=== PATIENT | female | born 1950 | race Caucasian/White ===

== ENCOUNTER → 2017-07-02 | Outpatient (CLI) | payer OTHER ==
[~2017-07-02] MED LIST: IBUP-1050 PO
--- NOTE | 2017-07-02 10:54 | DIAGNOSTIC IMAGING REPORT ---
CHEST 2 VIEWS ROUTINE CLINICAL HISTORY: R05 [id number] dyspnea COMPARISON STUDY: 09/22/2013 FINDINGS: Parenchymal infiltrate left midlung and left basilar region. Lungs otherwise are clear. No evidence for cardiac enlargement. Diaphragms are smooth. IMPRESSION: Parenchymal infiltrate combined with atelectatic change left mid and lower lung region. This study should be repeated a later date following appropriate treatment to confirm complete resolution The above report was generated using voice recognition software. It may contain grammatical, syntax or spelling errors. Electronically signed by: Live Graham M.D. 07/02/2017 10:53 AM Dictated Date/Time: 07/02/2017 10:51 AM
[2017-07-02 11:24] LABS: BASO % 0.3 %; BASO ABS # 0.03 K/uL (0-0.2); EOS ABS # 0.21 K/uL (0-0.5); HEMATOCRIT 42.3 % (37-47); HEMOGLOBIN 13.9 g/dL (12.0-16.0); IG# 0.04 K/uL (0.00-0.02); LYMPH ABS # 2.88 K/uL (1.2-3.4); MEAN CELL VOLUME 87.9 fL (80-100); MEAN CORPUSCULAR HEMOGLOBIN 28.9 pg (25-34); MEAN CORPUSCULAR HGB CONC 32.9 g/dl (32-36); MEAN PLATELET VOLUME 10.6 fL (7.4-10.4); MONO % 7.2 %; MONO ABS # 0.74 K/uL (0.11-0.59); NEUT % 62.1 %; NEUT ABS # 6.38 K/uL (1.4-6.5); PLATELET COUNT 241 K/uL (130-400); RED CELL DISTRIBUTION WIDTH CV 13.2 % (11.5-14.5); RED CELL DISTRIBUTION WIDTH SD 42.3 fL (36.4-46.3); WHITE BLOOD COUNT 10.28 K/uL (4.8-10.8)
[2017-07-02 12:44] LABS: ALBUMIN 3.5 gm/dl (3.4-5.0); AST/SGOT 10 U/L (15-37); BLOOD UREA NITROGEN 11 mg/dl (7-18); CARBON DIOXIDE 27 mmol/L (21-32); CREATININE 0.67 mg/dl (0.60-1.20); GLUCOSE 83 mg/dl (70-99); POTASSIUM 4.1 mmol/L (3.5-5.1); SODIUM 137 mmol/L (136-145)
[2017-07-02 12:47] LABS: ALKALINE PHOSPHATASE 75 U/L (45-117); ALT/SGPT 19 U/L (12-78); TOTAL PROTEIN 7.4 gm/dl (6.4-8.2)
== END | disposition home or self-care (01) ==
LOC: C.RAD 10:09
PROVIDERS: ATTEND Nurse Practitioner
DX: R91.8 Other nonspecific abnormal finding of lung field (principal); R05 Cough

== ENCOUNTER 2021-02-09 18:17 | Observation (INO) ==
[2021-02-09] MEDS ORDERED: XYLOCAINE 1%/SOD BICARB 20 ML VIAL INFIL ONE (19:22)
--- NOTE | 2021-02-09 20:26 | CT Scan Report ---
CT head/brain wo con CLINICAL HISTORY: 70 years-old Female with Pt c/o head injury. Acute head injury status post fall TECHNIQUE: Multiple axial CT images of the head were obtained without contrast. A dose lowering tech nique was utilized adhering to the principles of ALARA. COMPARISON: CT cervical spine and maxillofacial studies of same day FINDINGS: No acute intracranial hemorrhage, midline shift, intracranial mass, hydrocephalus, territorial ischem ia or abnormal extra-axial collection. Age-related involutional changes. The calvarium is intact. Mastoid air cells are clear. Mucoperiosteal thickening of the maxillary sin uses. Acute fractures of the left maxilla, left orbit and zygomatic arch. Large periorbital and left cheek contusion with hematoma. Subcutaneous and deep tissue emphysema. IMPRESSION: 1. No acute intracranial abnormality or calvarial fracture. 2. Acute facial bone fractures with large left periorbital left cheek hematoma. ACT 112: Negative or not required by law. The above report was generated using voice recognition software. It may contain grammatical, syntax o r spelling errors. Electronically signed by: Wong Lindsey M.D. 02/09/2021 8:25 PM
[2021-02-09] MEDS ORDERED: CLINDAMYCIN HCL 150 MG CAP PO ONE (20:31)
--- NOTE | 2021-02-09 20:36 | CT Scan Report ---
CT cervical spine wo con CT DOSE: 1050.75 mGy.cm CLINICAL HISTORY: 70 years-old Female with Pt c/o fall. Acute head and neck injury status post fall COMPARISON: CT head and maxillofacial studies of same day TECHNIQUE: Multiple axial CT images of the cervical spine were obtained without contrast. A dose low ering technique was utilized adhering to the principles of ALARA. FINDINGS: Moderate multilevel spondylitic spurring with mild facet arthrosis and intervertebral disc space narrowing. No acute fracture or subluxation. No endplate erosions. The mastoid air cells and mi ddle ear cavities are clear. The lung apices are clear. No prevertebral edema. Multinodular thyroid. IMPRESSION: No acute cervical spine fracture or subluxation. ACT 112: Negative or not required by law. The above report was generated using voice recognition software. It may contain grammatical, syntax o r spelling errors. Electronically signed by: Wong Lindsey M.D. 02/09/2021 8:35 PM
--- NOTE | 2021-02-09 20:45 | CT Scan Report ---
CT facial bones wo con CLINICAL HISTORY: 70 years-old Female presenting with Pt c/o fall, hit head. Acute head and facial in jury status post fall COMPARISON STUDY: CT head of same day, CT maxillofacial 09/22/2013 TECHNIQUE: High-resolution CT scan of the facial bones is performed. Images are reviewed in the axia l, sagittal, and coronal planes. IV contrast was not administered for this examination. A dose lower ing technique was utilized adhering to the principles of ALARA. FINDINGS: Left periorbital hematoma measures up to 7.0 x 0.9 cm. Left cheek hematoma with contusion. Acute comm inuted and angulated fracture of the left lateral orbital and maxillary steven. Acute comminuted and m ildly displaced fractures involve the anterior medial steven of the left maxillary sinus. Acute commin uted fracture the left orbital floor demonstrates 3 mm depression. Hemorrhage layers along the inferi or rectus muscle. No extraocular muscular entrapment. Acute mildly angulated and depressed fracture o f the left lamina papyracea. There are suggested chronic nasal bone fractures. Acute nondisplaced fra cture involves the lateral left pterygoid plate on image 235 series 6. Acute nondisplaced fractures o f the left zygomatic arch. The mandible is intact. No acute cervical spine fracture identified. Subcu taneous emphysema deep tissue air involves the left face. Hemorrhage within the left maxillary sinus with chronic mucoperiosteal thickening of the maxillary sinuses. Partial opacification of the ethmoid air cells. Mastoid air cells are clear. IMPRESSION: 1. Acute comminuted fractures of the lateral, medial and inferior orbital steven with large left perio rbital and left cheek contusion with hematoma. There is small amount of hemorrhage layering along the left inferior rectus muscle. No extraocular muscle entrapment. 2. Acute comminuted slightly displaced and angulated fractures of the medial, anterior and lateral wa lls of the left maxillary sinus. Layering hemorrhage within the maxillary sinus antrum with subcutane ous and deep tissue emphysema of the left face. 3. Acute fractures of the left zygomatic arch without significant displacement. 4. Subtle acute nondisplaced fracture involves the lateral left pterygoid plate. ACT 112: Negative or not required by law. The above report was generated using voice recognition software. It may contain grammatical, syntax o r spelling errors. Electronically signed by: Wong Lindsey M.D. 02/09/2021 8:44 PM
[2021-02-09 22:35] LABS: Basophils # (auto) 0.01 K/uL (0-0.2); Basophils % (auto) 0.1 %; Eosinophils # (auto) 0.03 K/uL (0-0.5); Eosinophils % (auto) 0.3 %; Hematocrit (blood only) 43.2 % (37-47); Hemoglobin 14.1 g/dL (12.0-16.0); Immature Granulocytes # (auto) 0.03 K/uL (0.00-0.02); Immature Granulocytes % (auto) 0.3 %; Lymphocytes # (auto) 2.24 K/uL (1.2-3.4); Lymphocytes % (auto) 23.2 %; Mean Corpuscular Hemoglobin 28.9 pg (25-34); Mean Corpuscular Hgb Conc 32.6 g/dL (32-36); Mean Corpuscular Volume 88.5 fL (80-100); Mean Platelet Volume 11.5 fL (7.4-10.4); Monocytes # (auto) 0.71 K/uL (0.11-0.59); Monocytes % (auto) 7.3 %; Neutrophils # (auto) 6.64 K/uL (1.4-6.5); Neutrophils % (auto) 68.8 %; Platelet Count 187 K/uL (130-400); RDW Coefficient of Variation 14.2 % (11.5-14.5); RDW Standard Deviation 46.4 fL (36.4-46.3); Red Blood Count 4.88 M/uL (4.2-5.4); White Blood Count 9.66 K/uL (4.8-10.8)
--- NOTE | 2021-02-09 22:37 | History & Physical Report ---
Date of Service February 09, 2021 Assessment & Plan (1) Orbital fracture: Plan: 70yo female with no significant past medical or surgical history presenting with acute fractures of left maxilla, left orbit and left zygomatic arch with large periorbital and cheek contusion with hematoma. Patient had suture repair in ER. No entrapment. She is AA&O with nonfocal neurological exam. Not on any anti- platelet agents or blood thinners -Admit to medical floor -Neuro checks with GCS q 4 hours -Ice to affected area -Clindamycin 600mg IV q 8 due to sinus fracture -Tylenol and Oxy-IR PRN pain -Zofran as needed for nausea -OMFS assessment appreciated (2) Zygomatic fracture: (3) Maxillary fracture: History of Present Illness Chief Complaint: facial fractures s/p mechanical fall Primary Care Provider: Eugenio Canales MD [place] is a 70yo female with no significant past medical or surgical history presenting with facial fractures following a ground-level mechanical fall. Patient was walking outside and states that she tripped on a part of raised sidewalk. She did not put her hands out to break her fall and struck her left face against concrete. She was able to get up immediately and had her sister bring her to the ER. She denies chest pain/palpitations/dizziness/lightheadedness preceding or following the fall. She denies loss of consciousness. Presently states that her left face is numb. Denies SMITH. Pain 4/10. ER course: suture repair of two small infraorbital lacerations Clindamycin 300mg Allergies Allergy/AdvReac Type Severity Reaction Status Date / Time Penicillins Allergy Unknown UNKNOWN Unverified 02/09/21 19:44 Home Medications Medication Instructions Recorded Confirmed Type No Known Home Medications 02/09/21 02/09/21 History Past Med/Surg History Medical History (Updated 02/09/21 @ 22:56 by Baylee Prince DO) Closed avulsion fracture of left calcaneus Headache Herpes zoster Maxillary fracture Orbital fracture Sinusitis Vaginal bleeding Zygomatic fracture Surgical History (Updated 02/09/21 @ 22:47 by Baylee Prince DO) History of eye surgery cosmetic repair left eye Family History Brother Heart disease Rheumatic fever Myocardial infarction Brother Myocardial infarction Mother Emphysema lung Sister Cardiac arrhythmia Sister Heart valve problem Denies family history of Ovarian cancer Prostate cancer Breast cancer Colorectal cancer Social History Smoking Status: Never smoker Second Hand Exposure: No; Hx Alcohol Use: No Hx Substance Use: No Visual Impairment: No Limitations Hearing Ability: Normal marital status: single Current Living Situation: Family Current Living Situation Comment: lives with sister, daughter and her daughter's family current occupational status: retired 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 occupation: 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 [employer], 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 Feels Safe at Home: Yes Childhood Exposure to Second-Hand Smoke: No Dental Care, Regularly: Yes Physical Activity Frequency: Does not Exercise Seatbelt Use: always Sunscreen Use: No Review of Systems Review of Systems: All systems reviewed & are unremarkable except as noted in HPI & below Physical Exam Physical Exam: General: patient resting comfortably, NAD, non-toxic in appearance, AA&O x 4 HEENT: NC, Left eye with extensive periorbital ecchymosis and edema, small amount of bruising to left cheek and jaw, two small infraorbital lacerations with sutures in place, EOMI with no entrapment, anicteric sclera, conjunctiva without injection, external ear normal to inspection and nontender, no hemotympanum, no mastoid bruising, nares patent, moist mucus membranes, dentition intact, no oropharyngeal lesions, neck supple without tenderness, trachea midline, no LAD, no thyromegaly, no JVD Heart: +S1/S2, regular, no m/r/g, no bruising or tenderness of chest wall Lungs: equal air entry bilaterally, no rales/rhonchi/wheezes Abd: +BS, soft, NT/ND, no masses/organomegaly/ascites, no bruising Ext: warm, 2+ pulses in UE/LE bilaterally, no clubbing/cyanosis or edema Neuro: nonfocal, patient AA&O x 4, speech intact, no facial droop, moving all extremities on command with equal strength 5/5 Results & Data Results & Data ([facility]) Vital Signs (Past 12 Hours) Vital Signs Temp Pulse Resp BP Pulse Ox 02/09/21 22:26 63 16 99 02/09/21 22:12 67 16 98 02/09/21 21:30 64 22 157/77 H 99 02/09/21 21:00 65 17 180/78 H 98 02/09/21 20:56 78 20 95 02/09/21 20:00 66 17 175/81 H 98 02/09/21 19:30 66 20 178/85 H 96 02/09/21 19:00 68 18 175/84 H 96 02/09/21 18:56 67 15 175/87 H 98 02/09/21 18:25 36.8 C 102 H 20 171/105 H 98 Laboratory Results Laboratory Results WBC 9.66 K/uL (4.8-10.8) 02/09/21 22:30 RBC 4.88 M/uL (4.2-5.4) 02/09/21 22:30 Hgb 14.1 g/dL (12.0-16.0) 02/09/21 22:30 Hct 43.2 % (37-47) 02/09/21 22:30 MCV 88.5 fL (80-100) 02/09/21 22:30 MCH 28.9 pg (25-34) 02/09/21 22:30 MCHC 32.6 g/dL (32-36) 02/09/21 22:30 RDW Std Deviation 46.4 fL (36.4-46.3) H 02/09/21 22:30 RDW Coeff of Gillian 14.2 % (11.5-14.5) 02/09/21 22:30 Plt Count 187 K/uL (130-400) 02/09/21 22:30 MPV 11.5 fL (7.4-10.4) H 02/09/21 22:30 Immature Gran % (Auto) 0.3 % 02/09/21 22:30 Neut % (Auto) 68.8 % 02/09/21 22:30 Lymph % (Auto) 23.2 % 02/09/21 22:30 Amador % (Auto) 7.3 % 02/09/21 22:30 Eos % (Auto) 0.3 % 02/09/21 22:30 Baso % (Auto) 0.1 % 02/09/21 22:30 Neut # (Auto) 6.64 K/uL (1.4-6.5) H 02/09/21 22:30 Lymph # (Auto) 2.24 K/uL (1.2-3.4) 02/09/21 22:30 Amador # (Auto) 0.71 K/uL (0.11-0.59) H 02/09/21 22:30 Eos # (Auto) 0.03 K/uL (0-0.5) 02/09/21 22:30 Baso # (Auto) 0.01 K/uL (0-0.2) 02/09/21 22:30 Immature Gran # (Auto) 0.03 K/uL (0.00-0.02) H 02/09/21 22:30 Sodium 143 mmol/L (136-145) 02/09/21 22:30 Potassium 3.2 mmol/L (3.5-5.1) L 02/09/21 22:30 Chloride 112 mmol/L (98-107) H 02/09/21 22:30 Carbon Dioxide 25 mmol/L (21-32) 02/09/21 22:30 Anion Gap 6.0 (3-11) 02/09/21 22:30 BUN 7 mg/dl (7-18) 02/09/21 22:30 Creatinine 0.60 mg/dl (0.6-1.2) 02/09/21 22:30 Est Cr Clr Drug Dosing 81.7 ml/min 02/09/21 22:30 Est GFR ( Amer) 107.0 ml/min 02/09/21 22:30 Est GFR (Non-Af Amer) 92.4 ml/min 02/09/21 22:30 BUN/Creatinine Ratio 10.9 (10-20) 02/09/21 22:30 Glucose 90 mg/dl (70-99) 02/09/21 22:30 Calcium 8.4 mg/dl (8.5-10.1) L 02/09/21 22:30 AST 17 U/L (15-37) 02/09/21 22:30 ALT 23 U/L (12-78) 02/09/21 22:30 Albumin 3.5 gm/dl (3.4-5.0) 02/09/21 22:30 COVID-19 Eval Order Covid19 at [facility] 02/09/21 22:[address] 02/09/21 18:29 CT cervical spine wo con CT DOSE: 1050.75 mGy.cm CLINICAL HISTORY: 70 years-old Female with Pt c/o fall. Acute head and neck injury status post fall COMPARISON: CT head and maxillofacial studies of same day TECHNIQUE: Multiple axial CT images of the cervical spine were obtained without contrast. A dose lowering technique was utilized adhering to the principles of ALARA. FINDINGS: Moderate multilevel spondylitic spurring with mild facet arthrosis and intervertebral disc space narrowing. No acute fracture or subluxation. No en dplate erosions. The mastoid air cells and middle ear cavities are clear. The lung apices are clear. No prevertebral edema. Multinodular thyroid. IMPRESSION: No acute cervical spine fracture or subluxation. ACT 112: Negative or not required by law. The above report was generated using voice recognition software. It may contain grammatical, syntax or spelling errors. Electronically signed by: Wong Lindsey M.D. 02/09/2021 8:[address] 02/09/21 18:29 CT facial bones wo con CLINICAL HISTORY: 70 years-old Female presenting with Pt c/o fall, hit head. Acute head and facial injury status post fall COMPARISON STUDY: CT head of same day, CT maxillofacial 09/22/2013 TECHNIQUE: High-resolution CT scan of the facial bones is performed. Images are reviewed in the axial, sagittal, and coronal planes. IV contrast was not administered for this examination. A dose lowering technique was utilized adhering to the principles of ALARA. FINDINGS: Left periorbital hematoma measures up to 7.0 x 0.9 cm. Left cheek hematoma with contusion. Acute comminuted and angulated fracture of the left lateral orbital and maxillary steven. Acute comminuted and mildly displaced fractures involve the anterior medial steven of the left maxillary sinus. Acute comminuted fracture the left orbital floor demonstrates 3 mm depression. Hemorrhage layers along the inferior rectus muscle. No extraocular muscular entrapment. Acute mildly angulated and depressed fracture of the left lamina papyracea. There are suggested chronic nasal bone fractures. Acute nondisplaced fracture involves the lateral left pterygoid plate on image 235 series 6. Acute nondisplaced fractures of the left zygomatic arch. The mandible is intact. No acute cervical spine fracture identified. Subcutaneous emphysema deep tissue air involves the left face. Hemorrhage within the left maxillary sinus with chronic mucoperiosteal thickening of the maxillary sinuses. Partial opacification of the ethmoid air cells. Mastoid air cells are clear. IMPRESSION: 1. Acute comminuted fractures of the lateral, medial and inferior orbital steven with large left periorbital and left cheek contusion with hematoma. There is small amount of hemorrhage layering along the left inferior rectus muscle. No extraocular muscle entrapment. 2. Acute comminuted slightly displaced and angulated fractures of the medial, anterior and lateral steven of the left maxillary sinus. Layering hemorrhage within the maxillary sinus antrum with subcutaneous and deep tissue emphysema of the left face. 3. Acute fractures of the left zygomatic arch without significant displacement. 4. Subtle acute nondisplaced fracture involves the lateral left pterygoid plate. ACT 112: Negative or not required by law. The above report was generated using voice recognition software. It may contain grammatical, syntax or spelling errors. Electronically signed by: Wong Lindsey M.D. 02/09/2021 8:[address] 02/09/21 18:29 CT head/brain wo con CLINICAL HISTORY: 70 years-old Female with Pt c/o head injury. Acute head injury status post fall TECHNIQUE: Multiple axial CT images of the head were obtained without contrast. A dose lowering technique was utilized adhering to the principles of ALARA. COMPARISON: CT cervical spine and maxillofacial studies of same day FINDINGS: No acute intracranial hemorrhage, midline shift, intracranial mass, hydrocephalus, territorial ischemia or abnormal extra-axial collection. Age-related involutional changes. The calvarium is intact. Mastoid air cells are clear. Mucoperiosteal thickening of the maxillary sinuses. Acute fractures of the left maxilla, left orbit and zygomatic arch. Large periorbital and left cheek contusion with hematoma. Subcutaneous and deep tissue emphysema. IMPRESSION: 1. No acute intracranial abnormality or calvarial fracture. 2. Acute facial bone fractures with large left periorbital left cheek hematoma. ACT 112: Negative or not required by law. The above report was generated using voice recognition software. It may contain grammatical, syntax or spelling errors. Electronically signed by: Wong Lindsey M.D. 02/09/2021 8:25 PM Code Status & VTE Plan Code Status EKG wtih NSR at 62, BW=039, QRS=68, GJe=980, no acute ischemic changes VTE Prophylaxis Plan VTE Prophylaxis will be ordered: Yes PG Care Time/CCT Total # of Minutes Spent Total Time Spent with Patient: Total time spent is greater than 50% in coordination of care (as documented) at patient's floor/unit and/or counseling patient: Coding Level of Care Code INT OBSERVATION CARE 50M LVL 2 Diagnoses Zygomatic fracture S02.402A Orbital fracture S02.85XA Maxillary fracture S02.401A
[2021-02-09 22:51] LABS: Albumin Level 3.5 gm/dl (3.4-5.0); BUN Creatinine Ratio 10.9 (10-20); Calcium 8.4 mg/dl (8.5-10.1); Creatinine Clr Calc Pharmacy 81.7 ml/min; Est GFR (Non-African American) 92.4 ml/min; Potassium 3.2 mmol/L (3.5-5.1)
[2021-02-09 22:54] LABS: Albumin Globulin Ratio 1.1 (0.9-2); Bilirubin,Total 0.5 mg/dl (0.2-1); Globulin 3.2 gm/dl (2.5-4.0); Total Protein 6.7 gm/dl (6.4-8.2)
[2021-02-09] MEDS ORDERED: ACETAMINOPHEN 500 MG TAB PO STA (22:58)
[2021-02-09] MEDS ORDERED: ACETAMINOPHEN 500 MG TAB ONE (23:04)
--- NOTE | 2021-02-09 23:58 | Oral/Maxillofacial Consult ---
Date of Consultation Oral Maxillofacial Surgery Exam Present Complaint: Injuries from fall Alisson Hook is a 70yo female with no significant past medical or surgical history presenting with facial fractures following a ground-level mechanical fall. Patient was walking outside and states that she tripped on a part of raised sidewalk. She did not put her hands out to break her fall and struck her left face against concrete. She was able to get up immediately and had her sister bring her to the ER. She denies chest pain/palpitations/dizziness/lightheadedness preceding or following the fall. She denies loss of consciousness. Presently states that her left face is numb. Denies SMITH. Pain 10/06. ER course: ER staff suture repair of two small infraorbital lacerations, ER called Dr. Fairchild to review management. Clindamycin 300mg CT scan shows multiply facial (sinus,orbital ZMOC fractures). Large swelling left eye and left cheek. plan admission Oral Exam: Finding--missing many teeth, no ecchymosis,no swelling, no acute injuries from recent fall. Imaging: See CT scan report CT scan report: CT facial bones wo con Independent interpretation of the CT scan by Dr Fairchild on Home work station. CLINICAL HISTORY: 70 years-old Female presenting with Pt c/o fall, hit head. Acute head and facial injury status post fall COMPARISON STUDY: CT head of same day, CT maxillofacial 09/22/2013 TECHNIQUE: High-resolution CT scan of the facial bones is performed. Images are reviewed in the axial, sagittal, and coronal planes. IV contrast was not administered for this examination. A dose lowering technique was utilized adhering to the principles of ALARA. FINDINGS: Left periorbital hematoma measures up to 7.0 x 0.9 cm. Left cheek hematoma with contusion. Acute comminuted and angulated fracture of the left lateral orbital and maxillary steven. Acute comminuted and mildly displaced fractures involve the anterior medial steven of the left maxillary sinus. Acute comminuted fracture the left orbital floor demonstrates 3 mm depression. Hemorrhage layers along the inferior rectus muscle. No extraocular muscular entrapment. Acute mildly angulated and depressed fracture of the left lamina papyracea. There are suggested chronic nasal bone fractures. Acute nondisplaced fracture involves the lateral left pterygoid plate on image 235 series 6. Acute nondisplaced fractures of the left zygomatic arch. The mandible is intact. No acute cervical spine fracture identified. Subcutaneous emphysema deep tissue air involves the left face. Hemorrhage within the left maxillary sinus with chronic mucoperiosteal thickening of the maxillary sinuses. Partial opacification of the ethmoid air cells. Mastoid air cells are clear. IMPRESSION: 1. Acute comminuted fractures of the lateral, medial and inferior orbital steven with large left periorbital and left cheek contusion with hematoma. There is small amount of hemorrhage layering along the left inferior rectus muscle. No extraocular muscle entrapment. 2. Acute comminuted slightly displaced and angulated fractures of the medial, anterior and lateral steven of the left maxillary sinus. Layering hemorrhage within the maxillary sinus antrum with subcutaneous and deep tissue emphysema of the left face. 3. Acute fractures of the left zygomatic arch without significant displacement. 4. Subtle acute nondisplaced fracture involves the lateral left pterygoid plate. Oral and Facial Soft tissue: Floor of the mouth, tongue, hard/soft palate, posterior pharyngeal area all with in normal limits Left periorbital swelling and cheek bone swelling with associated paraesthesia left infraorbital nerve (as expected) upper/lower eyelids swollen Eye right-WNL/ Left good vision and good ROM ? slight in upward gaze but with all the swelling difficult to tell at this time swelling is soft no evidence of hematoma TMJ exam: No pop, clicking, pain, good ROM, No history of TMJ injury or dysfunction Head/Neck exam: Neck is supple, FROM, Able to extend and flex neck w/o difficulty, no masses, no abnormalities, no airway issues. 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 I will saw Mrs. Hook Thursday for a clinical exam. I reviewed the case with hospitalist Dr Jeffrey Looking at the CT scan most of the orbital, sinus, ZMOC based upon CT evaluation are not displaced to the point that surgical intervention will be needed. I plan to see Alisson as an out patient on ThursdayFebruary 15 and then make assessment once the swelling has subsided regarding the left orbital floor fracture. I reviewed the treatment plan and consent with Alisson Understanding was expressed. Time was given for questions regarding home care and follow up needed care. Home care reviewed: tooth brushing, rinsing, follow up care with Dr Fairchild. diet=[id number]-[id number]-ngay dental. Discussed activity level, avoid nose blowing, use of saline nasal spray Follow up ThursdayFebruary 15 in office Assessment & Plan (1) Fall: (2) Zygomatic fracture: (3) Orbital fracture: (4) Maxillary fracture: (5) Laceration: History of Present Illness Allergies Allergy/AdvReac Type Severity Reaction Status Date / Time Penicillins Allergy Unknown UNKNOWN Unverified 02/09/21 19:44 Home Medications Medication Instructions Recorded Confirmed Type No Known Home Medications 02/09/21 02/09/21 History Patient History Medical History (Updated 02/10/21 @ 01:07 by Emanuel Kapoor MD) Closed avulsion fracture of left calcaneus Headache Herpes zoster Maxillary fracture Orbital fracture Sinusitis Vaginal bleeding Zygomatic fracture Surgical History (Updated 02/09/21 @ 22:47 by Baylee Prince DO) History of eye surgery cosmetic repair left eye Family History Brother Heart disease Rheumatic fever Myocardial infarction Brother Myocardial infarction Mother Emphysema lung Sister Cardiac arrhythmia Sister Heart valve problem Denies family history of Ovarian cancer Prostate cancer Breast cancer Colorectal cancer Social History Smoking Status: Never smoker Second Hand Exposure: No; Hx Alcohol Use: No Hx Substance Use: No Preferred Language: Syrian Communication Ability: Effective Visual Impairment: No Limitations Hearing Ability: Normal Manager Test Required: No Beliefs That Will Affect Care: None marital status: single Current Living Situation: Family Current Living Situation Comment: SISTER AND DAUGHTER current occupational status: retired current occupation: 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 at [employer], 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 Feels Safe at Home: Yes Childhood Exposure to Second-Hand Smoke: No Dental Care, Regularly: Yes Physical Activity Frequency: Does not Exercise Seatbelt Use: always Sunscreen Use: No Assistive Devices: None Results & Data ([facility]) Vital Signs (Past 12 Hours) Vital Signs Temp Pulse Resp BP Pulse Ox 02/09/21 22:30 61 18 157/85 H 97 02/09/21 22:26 63 16 99 02/09/21 22:12 67 16 98 02/09/21 21:30 64 22 157/77 H 99 02/09/21 21:00 65 17 180/78 H 98 02/09/21 20:56 78 20 95 02/09/21 20:00 66 17 175/81 H 98 02/09/21 19:30 66 20 178/85 H 96 02/09/21 19:00 68 18 175/84 H 96 02/09/21 18:56 67 15 175/87 H 98 02/09/21 18:25 36.8 C 102 H 20 171/105 H 98 PG Care Time/CCT Total # of Minutes Spent Total Time Spent with Patient: Total time spent is greater than 50% in coordination of care (as documented) at patient's floor/unit and/or counseling patient: Coding Level of Care Code INT OBSERVATION CARE 70M LVL 3 Diagnoses Fall W19.XXXA Encounter type: initial encounter Zygomatic fracture S02.40FA Encounter type: initial encounter Fracture type: closed Laterality: left Orbital fracture S02.85XA Encounter type: initial encounter Fracture type: closed Maxillary fracture S02.40DA Encounter type: initial encounter Fracture type: closed Laterality: left Laceration (1) Fall Encounter type: initial encounter Qualified Code(s): W19.XXXA - Unspecified fall, initial encounter (2) Zygomatic fracture Encounter type: initial encounter Fracture type: closed Laterality: left Qualified Code(s): S02.40FA - Zygomatic fracture, left side, initial encounter for closed fracture (3) Orbital fracture Encounter type: initial encounter Fracture type: closed Qualified Code(s): S02.85XA - Fracture of orbit, unspecified, initial encounter for closed fracture (4) Maxillary fracture Encounter type: initial encounter Fracture type: closed Laterality: left Qualified Code(s): S02.40DA - Maxillary fracture, left side, initial encounter for closed fracture
--- NOTE | 2021-02-10 00:42 | Emergency Department Note ---
Impression & Plan Fall, Zygomatic fracture, Orbital fracture, Maxillary fracture, Laceration ED Provider Note NAME: GUIDO VILLAFUERTE AGE: 70 SEX: F : 1950 ARRIVES VIA: Walk-In INFORMANT: Patient, ED PROVIDER(S): Emanuel Kapoor MD CHIEF COMPLAINT: fall, left facial swelling HPI: Records review reveals this patient had a wellness visit in October with her primary care physician. This is a 70-year-old female who reports to the em ergency department after a fall at home. The patient reports she tripped and landed on her face on concrete. She denies any other injury. She denies injuring her hands legs or feet. She is complaining of a pressure sensation to the left side of her face with no radiation. She has not taken anything for the pain prior to arrival. She reports nothing makes the pain any better or worse. patient denies any double vision. ROS: See above HPI for pertinent positives & negatives. A total of 10 systems reviewed and were otherwise negative. PAST MEDICAL HISTORY: See Below PAST SURGICAL HISTORY: See Below FAMILY HISTORY: See Below SOCIAL HISTORY: See Below HOME MEDICATIONS: See Below ALLERGIES: See Below VITALS: See Below PHYSICAL EXAMINATION: VITAL SIGNS - Vital signs and nursing notes were reviewed. GENERAL - 70-year-old female appearing stated age who is in no acute distress. Communicates well with provider and answers questions appropriately. SKIN -severe amount of bruising to the left side of face present HEAD -as above EYES - PERRL with EOMI bilaterally. Sclera anicteric. Palpebral conjunctiva pink and moist with no injection noted. EARS - No deformities of external structures noted on gross examination bilaterally. No pain elicited with palpation of the tragus bilaterally. External auditory canals without discharge or otorrhea. Tympanic membranes pearly lipscomb without retraction or bulging. No fluid or purulent material visualized behind t he TM. Handle of malleus, umbo, cone of light, pars tensa/flaccid all easily visualized. NOSE - Midline and without cyanosis. No epistaxis or purulent drainage noted. Septum midline without deviation or septal hematoma noted. MOUTH/OROPHARYNX - Without perioral cyanosis. Buccal mucosa pink and moist and without leukoplakia. Tongue midline with equal elevation of palate bilaterally. No tonsillar hypertrophy, erythema, or exudates noted. NECK - Neck with FROM. Supple to palpation. LUNGS - Chest wall symmetric without accessory muscle use, intercostals retractions, or central cyanosis. Normal vesicular breath sounds CTA B/L. No wheezes, rales, or rhonchi appreciated. CARDIAC - RRR with S1/S2. No murmur, rubs, or gallops appreciated. ABDOMEN - Abdominal contour without pulsations or visible masses. BS normoactive all four quadrants. No tenderness, palpable masses, hepatosplenomegaly, or ascites noted. EXTREMITIES - No clubbing or peripheral cyanosis. No pretibial edema present. + 3/5 radial, posterior tibial, and dorsalis pedis pulses palpated throughout. +5/5 strength noted in UE/LE bilaterally. NEUROLOGIC - Cranial nerves II through XII grossly intact. Sensory intact to light touch throughout. Patellar reflexes +2/4. PSYCH - A&Ox3 and cooperates fully with examiner. Pt is very pleasant and interacts well with examiner. MEDICAL DECISION MAKING: Patient was seen and evaluated as above in room C11. Review was performed of nursing notes and vital signs. I did review pertinent previous visits and patient history. After obtaining a thorough history and physical examination the above work up was performed. This 70-year-old female who presents emergency department complaining of severe swelling to the left side of the face. In addition the patient also has 2 lac erations. These these were repaired as below. I did discuss the case with Dr. Fairchild who was kind enough to asked that the patient be admitted to the medicine service and he will see her in the morning. In the meantime the patient was started on clindamycin for her facial fractures because she is allergic to amoxicillin. CAT scan results of the face were interpreted by me and are concerning for maxillary fracture orbital fracture and zygomatic fracture. The patient does not appear to have any entrapment of he eye muscles on my physical examination. I advised the patient not to blow her nose or to hold in her sneeze. An order was placed for continuous cardiac monitoring. The monitor shows a rate of 61 with Normal Sinus rhythm. The patient was evaluated during a period of high volume and high acuity during the global COVID-19 pandemic, and that diagnosis was suspected/considered upon their initial presentation. Their evaluation, treatment and testing was consistent with current guidelines for patients who present with complaints or symptoms that may be related to COVID-19. Patient was seen while provider was wearing PPE. Triage Nursing notes reviewed. Prior medical records reviewed Vital Signs: reviewed and remarkable for no significant abnormalities Differential diagnosis: Fracture, dislocation, contusion, intra-abdominal, pneumothorax, intrathoracic, intracranial, neurologic, compartment syndrome, rhabdomyolysis, as well as other pathologies. ER treatment provided: See below Diagnostics interpreted by me: ECG: EKG shows a normal sinus rhythm no ST elevation or depression QTC is 438 ventricular rate is 62. No previous EKG to compare to Laboratory studies: As stated above and show below. Imaging studies: See below Consultation(s): Dr Fairchild, [facility] Internal Medicine Procedures: Location: left cheek Total length: 2.6 cm Complexity: simple linear Verbal consent was obtained after the risks and benefits were explained, incl uding but not limited to bleeding, scarring, infection, pain, and bone/joint/nerve damage. At this time, the risks of the procedure are less than the risks of NOT performing the procedure. A time out was taken and the correct patient and site identified. The skin was prepped with betadine. The target area was anesthetized with 2 ml of 1% lidocaine without epinephrine. Copious irrigation was performed using NSS. The skin was re-prepped with betadine and a sterile field set. The wound was explored for foreign bodies and none found. Examination revealed no injury to deep structures such as tendons, bone, or significant blood vessels. Debridement was not performed. The wound edges were approximated using 2, 5-0 simple interrupted nylon sutures. Hemostasis and excellent approximation was achieved. Antibacterial ointment and a sterile dressing applied. Detailed wound care instructions and signs and symptoms of infection reviewed with the patient and sister. No complications and the patient tolerated the procedure well. Location: left cheek Total length: 2.6 cm Complexity: simple linear Verbal consent was obtained after the risks and benefits were explained, including but not limited to bleeding, scarring, infection, pain, and bone/joint/nerve damage. At this time, the risks of the procedure are less than the risks of NOT performing the procedure. A time out was taken and the correct patient and site identified. The skin was prepped with betadine. The target area was anesthetized with 2 ml of 1% lidocaine without epinephrine. Copious irrigation was performed using NSS. The skin was re-prepped with betadine and a sterile field set. The wound was explored for foreign bodies and none found. Examination revealed no injury to deep structures such as tendons, bone, or significant blood vessels. Debridement was not performed. The wound edges were approximated using 2, 5-0 simple interrupted nylon sutures. Hemostasis and excellent approximation was achieved. Antibacterial ointment and a sterile dressing applied. Detailed wound care instructions and signs and symptoms of infection reviewed with the . No complications and the patient tolerated the procedure well. Past Med/Surg History Medical History (Updated 02/10/21 @ 01:07 by Emanuel Kapoor MD) Closed avulsion fracture of left calcaneus Headache Herpes zoster Maxillary fracture Orbital fracture Sinusitis Vaginal bleeding Zygomatic fracture Surgical History (Updated 02/09/21 @ 22:47 by Baylee Prince DO) History of eye surgery cosmetic repair left eye Family History Brother Heart disease Rheumatic fever Myocardial infarction Brother Myocardial infarction Mother Emphysema lung Sister Cardiac arrhythmia Sister Heart valve problem Denies family history of Ovarian cancer Prostate cancer Breast cancer Colorectal cancer Social History Smoking Status: Never smoker Second Hand Exposure: No; Hx Alcohol Use: No Hx Substance Use: No Visual Impairment: No Limitations Hearing Ability: Normal marital status: single Current Living Situation: Family Current Living Situation Comment: lives with sister, daughter and her daughter's family current occupational status: retired 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 occupation: 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 [employer], 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 Feels Safe at Home: Yes Childhood Exposure to Second-Hand Smoke: No Dental Care, Regularly: Yes Physical Activity Frequency: Does not Exercise Seatbelt Use: always Sunscreen Use: No Allergies Allergies Allergy/AdvReac Type Severity Reaction Status Date / Time Penicillins Allergy Unknown UNKNOWN Unverified 02/09/21 19:44 Home Meds Home Medications Medication Instructions Recorded Confirmed No Known Home Medications 02/09/21 02/09/21 Results & Data (ED) Vital Signs Vital Signs - 24 hr 02/09/21 18:25 02/09/21 18:56 02/09/21 19:00 Temperature 36.8 C Temperature Source Temporal Artery Scan Pulse Rate 102 H 67 68 Pulse Rate from SpO2 Sensor 68 69 Pulse Rhythm Respiratory Rate 20 15 18 Respiratory Effort / Characteristics Non-Labored Respiratory Depth Normal Blood Pressure 171/105 H 175/87 H 175/84 H Blood Pressure Mean 127 116 114 Pulse Oximetry 98 98 96 Oxygen Delivery Method Room Air Sepsis Recent Fever Within 48 Hours No Sepsis New/Unexplained Change in Mental Status N/A Sepsis Action Taken by Nursing No Action Required 02/09/21 19:30 02/09/21 20:00 02/09/21 20:56 Temperature Temperature Source Pulse Rate 66 66 78 Pulse Rate from SpO2 Sensor 66 67 64 Pulse Rhythm Respiratory Rate 20 17 20 Respiratory Effort / Characteristics Respiratory Depth Blood Pressure 178/85 H 175/81 H Blood Pressure Mean 116 112 Pulse Oximetry 96 98 95 Oxygen Delivery Method Sepsis Recent Fever Within 48 Hours Sepsis New/Unexplained Change in Mental Status Sepsis Action Taken by Nursing 02/09/21 21:00 02/09/21 21:30 02/09/21 22:12 Temperature Temperature Source Pulse Rate 65 64 67 Pulse Rate from SpO2 Sensor 66 64 66 Pulse Rhythm Respiratory Rate 17 22 16 Respiratory Effort / Characteristics Respiratory Depth Blood Pressure 180/78 H 157/77 H Blood Pressure Mean 112 103 Pulse Oximetry 98 99 98 Oxygen Delivery Method Sepsis Recent Fever Within 48 Hours Sepsis New/Unexplained Change in Mental Status Sepsis Action Taken by Nursing 02/09/21 22:26 02/09/21 22:30 Temperature Temperature Source Pulse Rate 63 61 Pulse Rate from SpO2 Sensor 63 Pulse Rhythm Regular Respiratory Rate 16 18 Respiratory Effort / Characteristics Respiratory Depth Blood Pressure 157/85 H Blood Pressure Mean 109 Pulse Oximetry 99 97 Oxygen Delivery Method Room Air Sepsis Recent Fever Within 48 Hours Sepsis New/Unexplained Change in Mental Status Sepsis Action Taken by [facility]sp Medications Current Medication List: was personally reviewed by me Laboratory Data Attestation: I reviewed the patient's lab results. Result diagrams: 02/09/21 22:30 02/09/21 22:30 Lab Results 02/09/21 02/09/21 02/09/21 Range/Units 22:22 22:22 22:30 WBC 9.66 (4.8-10.8) K/uL RBC 4.88 (4.2-5.4) M/uL Hgb 14.1 (12.0-16.0) g/dL Hct 43.2 (37-47) % MCV 88.5 (80-100) fL MCH 28.9 (25-34) pg MCHC 32.6 (32-36) g/dL RDW Std Deviation 46.4 H (36.4-46.3) fL RDW Coeff of Gillian 14.2 (11.5-14.5) % Plt Count 187 (130-400) K/uL MPV 11.5 H (7.4-10.4) fL Immature Gran % (Auto) 0.3 % Neut % (Auto) 68.8 % Lymph % (Auto) 23.2 % Kane % (Auto) 7.3 % Eos % (Auto) 0.3 % Baso % (Auto) 0.1 % Neut # (Auto) 6.64 H (1.4-6.5) K/uL Lymph # (Auto) 2.24 (1.2-3.4) K/uL Kane # (Auto) 0.71 H (0.11-0.59) K/uL Eos # (Auto) 0.03 (0-0.5) K/uL Baso # (Auto) 0.01 (0-0.2) K/uL Immature Gran # (Auto) 0.03 H (0.00-0.02) K/uL Sodium (136-145) mmol/L Potassium (3.5-5.1) mmol/L Chloride (98-107) mmol/L Carbon Dioxide (21-32) mmol/L Anion Gap (3-11) BUN (7-18) mg/dl Creatinine (0.6-1.2) mg/dl Est Cr Clr Drug Dosing ml/min Est GFR ( Amer) ml/min Est GFR (Non-Af Amer) ml/min BUN/Creatinine Ratio (10-20) Glucose (70-99) mg/dl Calcium (8.5-10.1) mg/dl Total Bilirubin (0.2-1) mg/dl AST (15-37) U/L ALT (12-78) U/L Alkaline Phosphatase (45-117) U/L Total Protein (6.4-8.2) gm/dl Albumin (3.4-5.0) gm/dl Globulin (2.5-4.0) gm/dl Albumin/Globulin Ratio (0.9-2) COVID-19 Eval Order Covid19 at [facility] SARS-CoV-2 (PCR) NEGATIVE (Negative) 02/09/21 Range/Units 22:30 WBC (4.8-10.8) K/uL RBC (4.2-5.4) M/uL Hgb (12.0-16.0) g/dL Hct (37-47) % MCV (80-100) fL MCH (25-34) pg MCHC (32-36) g/dL RDW Std Deviation (36.4-46.3) fL RDW Coeff of Gillian (11.5-14.5) % Plt Count (130-400) K/uL MPV (7.4-10.4) fL Immature Gran % (Auto) % Neut % (Auto) % Lymph % (Auto) % Kane % (Auto) % Eos % (Auto) % Baso % (Auto) % Neut # (Auto) (1.4-6.5) K/uL Lymph # (Auto) (1.2-3.4) K/uL Kane # (Auto) (0.11-0.59) K/uL Eos # (Auto) (0-0.5) K/uL Baso # (Auto) (0-0.2) K/uL Immature Gran # (Auto) (0.00-0.02) K/uL Sodium 143 (136-145) mmol/L Potassium 3.2 L (3.5-5.1) mmol/L Chloride 112 H (98-107) mmol/L Carbon Dioxide 25 (21-32) mmol/L Anion Gap 6.0 (3-11) BUN 7 (7-18) mg/dl Creatinine 0.60 (0.6-1.2) mg/dl Est Cr Clr Drug Dosing 81.7 ml/min Est GFR ( Amer) 107.0 ml/min Est GFR (Non-Af Amer) 92.4 ml/min BUN/Creatinine Ratio 10.9 (10-20) Glucose 90 (70-99) mg/dl Calcium 8.4 L (8.5-10.1) mg/dl Total Bilirubin 0.5 (0.2-1) mg/dl AST 17 (15-37) U/L ALT 23 (12-78) U/L Alkaline Phosphatase 52 (45-117) U/L Total Protein 6.7 (6.4-8.2) gm/dl Albumin 3.5 (3.4-5.0) gm/dl Globulin 3.2 (2.5-4.0) gm/dl Albumin/Globulin Ratio 1.1 (0.9-2) COVID-19 Eval Order SARS-CoV-2 (PCR) (Negative) Administered Medications Discontinued Medications Acetaminophen (Acetaminophen 500 Mg Tab) 1,000 mg PO NOW STA Stop: 02/09/21 22:59 Last Admin: 02/09/21 23:29 Dose: Not Given Documented by: [id number] Acetaminophen (Acetaminophen 500 Mg Tab) Confirm Administered Dose 1,000 mg .ROUTE .STK-MED ONE Stop: 02/09/21 23:05 Last Admin: 02/09/21 23:07 Dose: 1,000 mg Documented by: [id number] Clindamycin HCl (Clindamycin Hcl 150 Mg Cap) 300 mg PO NOW ONE Stop: 02/09/21 20:32 Last Admin: 02/09/21 20:57 Dose: 300 mg Documented by: [id number] Lidocaine HCl (Xylocaine 1%/Sod Bicarb 20 Ml Vial) 20 ml INFIL NOW ONE Stop: 02/09/21 19:23 Last Admin: 02/09/21 20:57 Dose: 20 ml Documented by: [id number] Imaging Data Radiologist's Impression: Cervical Spine CT 02/09/21 18:29 CT cervical spine wo con CT DOSE: 1050.75 mGy.cm CLINICAL HISTORY: 70 years-old Female with Pt c/o fall. Acute head and neck injury status post fall COMPARISON: CT head and maxillofacial studies of same day TECHNIQUE: Multiple axial CT images of the cervical spine were obtained without contrast. A dose lowering technique was utilized adhering to the principles of ALARA. FINDINGS: Moderate multilevel spondylitic spurring with mild facet arthrosis and intervertebral disc space narrowing. No acute fracture or subluxation. No endplate erosions. The mastoid air cells and middle ear cavities are clear. The lung apices are clear. No prevertebral edema. Multinodular thyroid. IMPRESSION: No acute cervical spine fracture or subluxation. ACT 112: Negative or not required by law. The above report was generated using voice recognition software. It may contain grammatical, syntax or spelling errors. Electronically signed by: Wong Lindsey M.D. 02/09/2021 8:[address] 02/09/21 18:29 CT facial bones wo con CLINICAL HISTORY: 70 years-old Female presenting with Pt c/o fall, hit head. Acute head and facial injury status post fall COMPARISON STUDY: CT head of same day, CT maxillofacial 09/22/2013 TECHNIQUE: High-resolution CT scan of the facial bones is performed. Images are reviewed in the axial, sagittal, and coronal planes. IV contrast was not administered for this examination. A dose lowering technique was utilized adhering to the principles of ALARA. FINDINGS: Left periorbital hematoma measures up to 7.0 x 0.9 cm. Left cheek hematoma with contusion. Acute comminuted and angulated fracture of the left lateral orbital and maxillary steven. Acute comminuted and mildly displaced fractures involve the anterior medial steven of the left maxillary sinus. Acute comminuted fracture the left orbital floor demonstrates 3 mm depression. Hemorrhage layers along the inferior rectus muscle. No extraocular muscular entrapment. Acute mildly angulated and depressed fracture of the left lamina papyracea. There are suggested chronic nasal bone fractures. Acute nondisplaced fracture involves the lateral left pterygoid plate on image 235 series 6. Acute nondisplaced fractures of the left zygomatic arch. The mandible is intact. No acute cervical spine fracture identified. Subcutaneous emphysema deep tissue air involves the left f robert. Hemorrhage within the left maxillary sinus with chronic mucoperiosteal thickening of the maxillary sinuses. Partial opacification of the ethmoid air cells. Mastoid air cells are clear. IMPRESSION: 1. Acute comminuted fractures of the lateral, medial and inferior orbital steven with large left periorbital and left cheek contusion with hematoma. There is sma ll amount of hemorrhage layering along the left inferior rectus muscle. No extraocular muscle entrapment. 2. Acute comminuted slightly displaced and angulated fractures of the medial, anterior and lateral steven of the left maxillary sinus. Layering hemorrhage within the maxillary sinus antrum with subcutaneous and deep tissue emphysema of the left face. 3. Acute fractures of the left zygomatic arch without significant displacement. 4. Subtle acute nondisplaced fracture involves the lateral left pterygoid plate. ACT 112: Negative or not required by law. The above report was generated using voice recognition software. It may contain grammatical, syntax or spelling errors. Electronically signed by: Wong Lindsey M.D. 02/09/2021 8:[address] 02/09/21 18:29 CT head/brain wo con CLINICAL HISTORY: 70 years-old Female with Pt c/o head injury. Acute head injury status post fall TECHNIQUE: Multiple axial CT images of the head were obtained without contrast. A dose lowering technique was utilized adhering to the principles of ALARA. COMPARISON: CT cervical spine and maxillofacial studies of same day FINDINGS: No acute intracranial hemorrhage, midline shift, intracranial mass, hydrocephalus, territorial ischemia or abnormal extra-axial collection. Age- related involutional changes. The calvarium is intact. Mastoid air cells are clear. Mucoperiosteal thickening of the maxillary sinuses. Acute fractures of the left maxilla, left orbit and zygomatic arch. Large periorbital and left cheek contusion with hematoma. Subcutaneous and deep tissue emphysema. IMPRESSION: 1. No acute intracranial abnormality or calvarial fracture. 2. Acute facial bone fractures with large left periorbital left cheek hematoma. ACT 112: Negative or not required by law. The above report was generated using voice recognition software. It may contain grammatical, syntax or spelling errors. Electronically signed by: Wong Lindsey M.D. 02/09/2021 8:25 PM Discharge Plan Visit Data Chief Complaint: Fall Stated Complaint: FELL ON FACE ON CEMENT ED Provider: Emanuel Kapoor Discharge Problem: Fall, Zygomatic fracture, Orbital fracture, Maxillary fracture, Laceration Patient Disposition: Admitted As Inpatient Discharge Instructions Interventions: ED Discharge Assessment Last Done: 02/10/21 01:02 Discharge Problem: Fall Qualifiers: Encounter type: initial encounter Qualified Code(s): W19.XXXA - Unspecified fal l, initial encounter Zygomatic fracture Qualifiers: Encounter type: initial encounter Fracture type: closed Laterality: left Qualified Code(s): S02.40FA - Zygomatic fracture, left side, initial encounter for closed fracture Orbital fracture Qualifiers: Encounter type: initial encounter Fracture type: closed Qualified Code(s): S02.85XA - Fracture of orbit, unspecified, initial encounter for closed fracture Maxillary fracture Qualifiers: Encounter type: initial encounter Fracture type: closed Laterality: left Qualified Code(s): S02.40DA - Maxillary fracture, left side, initial encounter for closed fracture
[2021-02-10] MEDS ORDERED: ACETAMINOPHEN 325 MG TAB PO PRN (01:34)
[2021-02-10] MEDS ORDERED: oxyCODONE HCL IR 5 MG TAB (IMMEDIATE RELEASE) PO PRN (01:34)
[2021-02-10] MEDS ORDERED: ONDANSETRON INJ 2 MG/ML 2 ML VIAL IV PRN (01:34)
[2021-02-10] MEDS ORDERED: CLINDAMYCIN 600 MG in DEXTROSE 5% 50 ML IV SCH (06:00)
--- NOTE | 2021-02-10 07:19 | Hospitalist Progress Note ---
Date of Service February 10, 2021 Assessment & Plan Admission and Anticipated Discharge Date Admission Date: February 09, 2021 Results & Data Results & Data ([facility]) Vital Signs (Past 12 Hours) Vital Signs Temp Pulse Pulse Resp BP BP Pulse Ox 02/10/21 01:20 36.5 C 71 16 155/95 H 98 02/10/21 01:00 61 22 145/78 H 02/10/21 00:00 63 21 142/79 H 02/09/21 23:00 66 16 127/87 99 02/09/21 22:30 61 18 157/85 H 97 02/09/21 22:26 63 16 99 02/09/21 22:12 67 16 98 02/09/21 21:30 64 22 157/77 H 99 02/09/21 21:00 65 17 180/78 H 98 02/09/21 20:56 78 20 95 02/09/21 20:00 66 17 175/81 H 98 02/09/21 19:30 66 20 178/85 H 96
--- NOTE | 2021-02-10 09:31 | Electrocardiogram Report ---
Test Reason : Blood Pressure : / mmHG Vent. Rate : 062 BPM Atrial Rate : 062 BPM P-R Int : 196 ms QRS Dur : 068 ms QT Int : 432 ms P-R-T Axes : 059 001 034 degrees QTc Int : 438 ms Normal sinus rhythm Low voltage QRS Borderline ECG No previous ECGs available Confirmed by Fernie Choudhary ([id number]) on 02/10/2021 9:30:47 AM Referred By: REFERRED SELF Confirmed By:Fernie Chouhdary
--- NOTE | 2021-02-10 17:34 | Discharge Summary ---
Date of Service February 10, 2021 Admission HPI Per Admitting Provider Alisson Hook is a 70yo female with no significant past medical or surgical history presenting with facial fractures following a ground-level mechanical fall. Patient was walking outside and states that she tripped on a part of raised sidewalk. She did not put her hands out to break her fall and struck her left face against concrete. She was able to get up immediately and had her sister bring her to the ER. She denies chest pain/palpitations/dizziness/lightheadedness preceding or following the fall. She denies loss of consciousness. Presently states that her left face is numb. Denies SMITH. Pain 10/06. ER course: suture repair of two small infraorbital lacerations Clindamycin 300mg Admission Exam Per Admitting Provider General: patient resting comfortably, NAD, non-toxic in appearance, AA&O x 4 HEENT: NC, Left eye with extensive periorbital ecchymosis and edema, small amount of bruising to left cheek and jaw, two small infraorbital lacerations with sutures in place, EOMI with no entrapment, anicteric sclera, conjunctiva without injection, external ear normal to inspection and nontender, no hemotympanum, no mastoid bruising, nares patent, moist mucus membranes, dentition intact, no oropharyngeal lesions, neck supple without tenderness, trachea midline, no LAD, no thyromegaly, no JVD Heart: +S1/S2, regular, no m/r/g, no bruising or tenderness of chest wall Lungs: equal air entry bilaterally, no rales/rhonchi/wheezes Abd: +BS, soft, NT/ND, no masses/organomegaly/ascites, no bruising Ext: warm, 2+ pulses in UE/LE bilaterally, no clubbing/cyanosis or edema Neuro: nonfocal, patient AA&O x 4, speech intact, no facial droop, moving all extremities on command with equal strength 5/5 Principal Diagnosis Facial fractures Discharge Exam Constitutional: well-appearing, no acute distress, laying in bed HEENT: left periorbital and cheek swelling and ecchymosis, left upper and lower eyelid swelling, possible upward gaze of left eye, right eye vision intact CV: regular rhythm, no murmur appreciated, extremities well-perfused, no LE edema Resp: CTABL, no wheezes/rales/rhonchi appreciated, no increased work of breathing Neuro: AOx4, no focal neurological deficits appreciated Discharge Data Allergies Allergy/AdvReac Type Severity Reaction Status Date / Time Penicillins Allergy Unknown UNKNOWN Unverified 02/09/21 19:44 Consultations 02/09/21 21:45 ED Decision to Admit Stat 02/10/21 01:34 Consult Oromaxillofacial Surgery Routine Ordered Studies 02/09/21 18:29 CT cervical spine wo con Stat CT facial bones wo con Stat CT head/brain wo con Stat Hospital Course (1) Maxillary fracture: Imaging performed on admission revealed acute fractures of the lateral, medial, and inferior orbital steven, the medial, anterior, and lateral steven of the left maxillary sinus, the left zygomatic arch, and the lateral left p terygoid plate. Oral/maxillofacial surgery was consulted and felt patient's injuries did not require surgical correction. Patient was without neurologic symptoms, and pain was well-controlled, so patient was discharged on hospital day one in stable condition with oral/maxillofacial surgery follow-up scheduled for February 15. Patient was hemodynamically stable for the entirety of her hospitalization. (2) Orbital fracture: (3) Zygomatic fracture: Total Time Total Time Spent Total Time Spent (In Minutes): see attending documentation Discharge Plan Discharge Items Patient Disposition: Home - Self-Care Reason For Visit: FACIAL FRACTURE Discharge Diagnosis: Facial fracture Condition on Discharge: Good Activity: Resume your previous activity Lifting: Gradually increase as tolerated Bathing: No limitations Exercise/Sports: Gradually increase as tolerated Driving/Machine Use: Resume 3 days after discharge Weightbearing: Full weightbearing Non-emergency contact: Primary Care Provider and Specialist Call non-emergency contact if: you have any medication questions Follow-up/Referrals: Kyle Canales MD [Primary Care Provider] - Michael Fairchild DMD [Physician] - Diet: Regular Addtl Attending Provider Instructions: You were admitted to the hospital for facial fractures. You were treated with pain control and seen by surgery. They feel it is safe for you to return home.. A discharge summary will be sent to your primary care physician to ensure continuity of care. Please bring this discharge summary with you to your next office appointment so that your provider can review it at that time. NO nose blowing Use ice to the left side of your face Sleep with heal elevated to help with swelling Follow Up appointment with dr Fairchild Feb 14 at 2:45 Follow-up appointments: Make a follow-up appointment with your PCP within the next week. It is very important that you follow up with them shortly after discharge from the hospital. Keep all your follow-up appointments as already scheduled. If you cannot make an appointment, notify your provider. CONTACT YOUR PRIMARY CARE PROVIDER if you experience any of the following: Sudden changes in vision or loss of vision Worsening headache Difficulty following your treatment plan, or difficulty taking medications CALL 911 OR GO TO THE EMERGENCY DEPARTMENT if you experience any of the following: Sudden, severe abdominal pain or nausea/vomiting Severe chest pain, or chest pain that radiates (moves) to your jaw or arm Sudden, severe shortness of breath or difficulty breathing Thank you for allowing us to participate in your care. Pending Studies at Discharge: No Stand-Alone Forms: [employer], Smoking Cessation Medications and DC Order Prescriptions: Continued clindamycin HCl 300 mg capsule 300 mg PO TID 7 Days Qty: 21 RF: 0 [place] Complete Aerosol 2 spray intranasal .COMPLEX Qty: 177 RF: 0 Discharge Orders: Discharge Order (Routine); Ordered 02/10/21 Ordered By: Michael Gautam/Other Patient Handouts: Preventing Falls in the Home Admission Data Admit Date/Time: 02/09/21 22:34 Attending Provider: Kyle Pena Admit Provider: Baylee Prince Primary Care Provider: Kyle Canales Other Providers: Baylee Prince ; Michael Fairchild Other Interventions: Discharge Summary Assessment (RN) Last Done: 02/10/21 09:55 Supervising Physician Co-Signing Physician Notes Attending attestation Pt seen and examined in concert with Dr. Greenwood. In agreement with the d ocumented findings as noted in the resident documentation with any exceptions or additions as noted here. continued facial swelling with diplopia with upward gaze reported with pain well controlled at present. On examination, S1/S2 nl RRR no MCG. CTAB. Abd NT/ND BS+ve Facial fractures - OMFS consultation - Pain control and follow up per OMFS. Else see resident documentation as noted. Total attending time spent on this case on the day of discharge: 20 minutes.
== END 2021-02-10 10:54 | disposition home or self-care (01) ==
LOC: ED 18:17 → 3N 18:17 → SUATTDRO 22:34 → 3N 02-10 01:02